=== PATIENT | female | born 1935 | race Caucasian/White ===

== ENCOUNTER 2018-08-16 17:20 | Inpatient (IN) ==
[2018-08-16] MEDS ORDERED: DILTIAZEM 50 MG/10 ML VIAL IV STA (17:56)
[2018-08-16] MEDS ORDERED: DILTIAZEM 25 MG/5 ML VIAL IV ONE (18:33)
[2018-08-16 18:54] LABS: Basophils # 0.1 10*3/uL (0.0-0.2); Basophils % 0.6 % (0.0-0.8); Eosinophils # 0.2 10*3/uL (0.0-0.87); Hematocrit 44.6 VOL% (35.7-47.0); Hemoglobin 14.2 GM/DL (12.0-16.0); Immature Granulocytes % 0.8 %; Immature Granulocytes Absolute 0.14 #; Lymphocytes # 4.2 10*3/uL (1.4-4.0); Lymphocytes % 23.7 % (21.3-54.2); Mean Corpuscular HGB Conc 31.8 GM/DL (32-36); Mean Corpuscular Hemoglobin 32 PG (27-34); Mean Platelet Volume 12.4 FL (9.6-12.0); Monocytes # 1.5 10*3/uL (0.11-0.8); Monocytes % 8.3 % (1.7-12.7); Neutrophils # 11.7 10*3/uL (1.4-7.4); Neutrophils % 65.6 % (38.7-73.9); Platelet Count 239 T/CUMM (130-400); Red Blood Count 4.46 MC/CUMM (3.8-5.5); Red Cell Distribution Width 15.8 % (9.3-17.3); White Blood Count 17.9 T/CUMM (4-12)
[2018-08-16] MEDS: dilTIAZem Drip 125 MG/125 ML PREMIX IV SCH (19:23)
[2018-08-16 19:35] LABS: Albumin 3.4 G/DL (3.4-5.0); Bilirubin,Total 0.6 MG/DL (0.2-1.0); Calcium 9.6 MG/DL (8.5-10.1); Osmolality,Calculated 299.7 MOS/KG (273-304); Potassium 5.2 MMOL/L (3.5-5.1); Total Protein 6.6 G/DL (6.4-8.3)
[2018-08-16 19:36] LABS: Troponin I < 0.015 NG/ML (0.00-0.045)
[2018-08-16] MEDS ORDERED: ONDANSETRON 4 MG/2 ML VIAL IV STA (19:36)
[2018-08-16 20:05] LABS: Lactic Acid 2.3 MMOL/L (0.4-2.0)
[2018-08-16 20:18] LABS: PT Patient Result 10.6 SECS; Partial Thromboplastin Time 32.4 SECS (0-40)
[2018-08-16] MEDS ORDERED: ONDANSETRON 4 MG/2 ML VIAL IV PRN (20:41)
[2018-08-16] MEDS ORDERED: PANTOPRAZOLE 40 MG VIAL IV ONE (20:47)
[2018-08-16] MEDS ORDERED: ALUMINUM/MAGNES/SIMETH MAX STR 30 ML UDCUP PO PRN (20:49)
[2018-08-16] MEDS ORDERED: ACETAMINOPHEN 325 MG TABLET PO PRN (20:49)
[2018-08-16] MEDS ORDERED: KETOROLAC 30 MG/1 ML VIAL IV STA (20:51)
[2018-08-16 20:52] LABS: Apearance,Urine Slightly Hazy (Clear); Bacteria,Urine Occasional /HPF (Few); Bilirubin,Urine Negative (Negative); Blood, Urine Negative (Negative); Glucose,Urine (UA) Negative (Negative); Ketones,Urine Negative (Negative); Mucus,Urine Occasional /LPF (Occasional); Nitrite,Urine Negative (Negative); Protein,Urine Negative; RBC,Urine 1 /HPF (0-4); Squamous Epithelial Cell,Urine Occasional /HPF (0-10); Urine Color Yellow (Yellow); Urine Specific Gravity 1.013 (1.001-1.035); Urine Urobilinogen < 2.0 EU/DL (0.2-1.0); WBC,Urine 37 /HPF (0-6)
[2018-08-16] MEDS ORDERED: ALBUTEROL/IPRATROPIUM 3 ML NEB RESP TX PRN (20:56)
[2018-08-16] MEDS ORDERED: DEXTROSE 50% 25 GM/50 ML VIAL IV PRN (20:57)
[2018-08-16] MEDS ORDERED: GLUCAGON 1 MG VIAL IM PRN (20:57)
[2018-08-16] MEDS ORDERED: PRAMIPEXOLE 0.25 MG TABLET PO SCH (21:00)
[2018-08-16 21:48] LABS: Hematocrit 39.7 VOL% (35.7-47.0); Hemoglobin 12.8 GM/DL (12.0-16.0)
[2018-08-16 22:12] LABS: Troponin I < 0.015 NG/ML (0.00-0.045)
[2018-08-16] MEDS: BUDESONIDE/FORMOTEROL 160-4.5 INHALER 6 GM INH SCH (23:05)
[2018-08-16] MEDS: CALCIUM (CARBONATE)/VITAMIN D 600 MG-400 UNIT TABLET PO SCH (23:07)
[2018-08-16] MEDS: BENZTROPINE 0.5 MG TABLET PO SCH (23:07)
[2018-08-16] MEDS: BACLOFEN 10 MG TABLET PO SCH (23:07)
[2018-08-16] MEDS: CARVEDILOL 12.5 MG TABLET PO SCH (23:07)
[2018-08-16] MEDS: SUCRALFATE 1 GM/10 ML UDCUP PO SCH (23:07)
[2018-08-16] MEDS: FUROSEMIDE 40 MG TABLET PO SCH (23:07)
[2018-08-16] MEDS: PREGABALIN 100 MG CAPSULE PO SCH (23:07)
[2018-08-16] MEDS: INSULIN LISPRO 100 UNIT/ML SUBCUT SCH (23:08)
[2018-08-17] MEDS ORDERED: ZIPRASIDONE 20 MG/1 ML VIAL IM ONE (01:00)
[2018-08-17 05:25] LABS: Basophils # 0.1 10*3/uL (0.0-0.2); Basophils % 0.4 % (0.0-0.8); Hematocrit 35.7 VOL% (35.7-47.0); Hemoglobin 11.5 GM/DL (12.0-16.0); Immature Granulocytes % 1.3 %; Immature Granulocytes Absolute 0.32 #; Lymphocytes % 15.8 % (21.3-54.2); Mean Corpuscular HGB Conc 32.2 GM/DL (32-36); Mean Corpuscular Hemoglobin 33 PG (27-34); Mean Corpuscular Volume 100.8 FL (87-102); Mean Platelet Volume 12.7 FL (9.6-12.0); Monocytes # 1.9 10*3/uL (0.11-0.8); Monocytes % 7.3 % (1.7-12.7); Neutrophils # 19.3 10*3/uL (1.4-7.4); Neutrophils % 75.2 % (38.7-73.9); Platelet Count 226 T/CUMM (130-400); Red Blood Count 3.54 MC/CUMM (3.8-5.5); Red Cell Distribution Width 15.6 % (9.3-17.3); White Blood Count 25.6 T/CUMM (4-12)
[2018-08-17 06:15] LABS: Anisocytosis 1+; Band Neutrophils 6 % (0-10); Lymphocytes 21 % (20-55); Macrocytosis 1+; Platelet Estimate Normal; Segmented Neutrophils 68 % (50-85); Total Cells Counted 100; Troponin I < 0.015 NG/ML (0.00-0.045)
[2018-08-17] MEDS: LEVOTHYROXINE 50 MCG TABLET PO SCH (06:20)
[2018-08-17] MEDS: dilTIAZem Drip 125 MG/125 ML PREMIX IV SCH ×2 (06:21→20:44)
[2018-08-17 07:15] LABS: Albumin 2.9 G/DL (3.4-5.0); Bilirubin,Total 0.5 MG/DL (0.2-1.0); Calcium 9.3 MG/DL (8.5-10.1); Osmolality,Calculated 309.8 MOS/KG (273-304); Potassium 5.8 MMOL/L (3.5-5.1); Risk Ratio 3.42; Total Protein 6.4 G/DL (6.4-8.3); VLDL CHOLESTEROL 30.2 MG/DL
[2018-08-17 07:18] LABS: Lactic Acid 3.2 MMOL/L (0.4-2.0)
[2018-08-17] MEDS: THEOPHYLLINE ER (24 HR) 400 MG TABLET PO SCH (09:36)
[2018-08-17] MEDS: PREGABALIN 100 MG CAPSULE PO SCH ×2 (09:36→20:46)
[2018-08-17] MEDS: SUCRALFATE 1 GM/10 ML UDCUP PO SCH ×4 (09:36→20:47)
[2018-08-17] MEDS: FUROSEMIDE 40 MG TABLET PO SCH (09:36)
[2018-08-17] MEDS: busPIRone 5 MG TABLET PO SCH (09:36)
[2018-08-17] MEDS: ALLOPURINOL 300 MG TABLET PO SCH (09:36)
[2018-08-17] MEDS: MONTELUKAST 10 MG TABLET PO SCH (09:36)
[2018-08-17] MEDS: DULoxetine 30 MG CAPSULE PO SCH (09:36)
[2018-08-17] MEDS: CARVEDILOL 12.5 MG TABLET PO SCH ×2 (09:36→16:36)
[2018-08-17] MEDS: CALCIUM (CARBONATE)/VITAMIN D 600 MG-400 UNIT TABLET PO SCH ×2 (09:37→20:47)
[2018-08-17] MEDS: DIGOXIN 0.125 MG TABLET PO SCH (09:37)
[2018-08-17] MEDS: MAGNESIUM OXIDE 400 MG TABLET PO SCH (09:38)
[2018-08-17] MEDS: POLYETHYLENE GLYCOL POWDER 17 GM PACK PO SCH (09:38)
[2018-08-17] MEDS: ARIPiprazole 2 MG TABLET PO SCH (09:39)
[2018-08-17] MEDS: INSULIN LISPRO 100 UNIT/ML SUBCUT SCH ×4 (09:39→20:47)
[2018-08-17] MEDS: BUDESONIDE/FORMOTEROL 160-4.5 INHALER 6 GM INH SCH ×2 (09:40→21:21)
[2018-08-17] MEDS: GLIMEPIRIDE 2 MG TABLET PO SCH (09:40)
[2018-08-17] MEDS: PRAMIPEXOLE 0.25 MG TABLET PO SCH ×2 (09:44→20:46)
[2018-08-17 11:01] LABS: Hematocrit 33.6 VOL% (35.7-47.0); Hemoglobin 10.9 GM/DL (12.0-16.0)
[2018-08-17 11:25] LABS: Lactic Acid 2.2 MMOL/L (0.4-2.0)
[2018-08-17] MEDS ORDERED: SODIUM POLYSTYRENE SULFATE 15 GM/60 ML BOTTLE PO STA (11:27)
[2018-08-17] MEDS: cefTRIAXone 1,000 MG in SYRINGE 1 EACH IV SCH (11:49)
[2018-08-17] MEDS: SODIUM CHLORIDE 0.9% 1,000 ML IV SCH ×2 (11:50→22:16)
[2018-08-17] MEDS: DILTIAZEM 30 MG TABLET PO SCH ×3 (12:06→20:46)
[2018-08-17] MEDS: PANTOPRAZOLE INJ 200 MG in SODIUM CHLORIDE 0.9% 250 ML IV SCH ×3 (14:57→21:21)
[2018-08-17] MEDS ORDERED: ZIPRASIDONE 20 MG/1 ML VIAL IM PRN (15:49)
[2018-08-17 15:52] LABS: Hematocrit 31.4 VOL% (35.7-47.0); Hemoglobin 10.1 GM/DL (12.0-16.0)
[2018-08-17] MEDS ORDERED: ZINC OXIDE PASTE 113 GM TUBE TOP PRN (17:24)
[2018-08-17] MEDS: BENZTROPINE 0.5 MG TABLET PO SCH (20:46)
[2018-08-17] MEDS: BACLOFEN 10 MG TABLET PO SCH (20:47)
[2018-08-17 21:42] LABS: Hematocrit 33.1 VOL% (35.7-47.0); Hemoglobin 10.2 GM/DL (12.0-16.0)
[2018-08-17] MEDS: MORPHINE 4 MG/1 ML VIAL IV PRN (22:13)
[2018-08-18 05:27] LABS: Basophils # 0.1 10*3/uL (0.0-0.2); Basophils % 0.5 % (0.0-0.8); Eosinophils # 0.7 10*3/uL (0.0-0.87); Eosinophils % 3.1 % (0.00-10.9); Hematocrit 32.2 VOL% (35.7-47.0); Hemoglobin 10.1 GM/DL (12.0-16.0); Immature Granulocytes % 0.7 %; Immature Granulocytes Absolute 0.16 #; Lymphocytes # 6.1 10*3/uL (1.4-4.0); Mean Corpuscular HGB Conc 31.4 GM/DL (32-36); Mean Corpuscular Hemoglobin 32 PG (27-34); Mean Corpuscular Volume 101.6 FL (87-102); Monocytes # 1.4 10*3/uL (0.11-0.8); Monocytes % 6.2 % (1.7-12.7); Neutrophils % 62.5 % (38.7-73.9); Platelet Count 214 T/CUMM (130-400); Red Blood Count 3.17 MC/CUMM (3.8-5.5); Red Cell Distribution Width 15.8 % (9.3-17.3); White Blood Count 22.5 T/CUMM (4-12)
[2018-08-18 06:05] LABS: Calcium 9.1 MG/DL (8.5-10.1); Osmolality,Calculated 316.1 MOS/KG (273-304); Potassium 4.2 MMOL/L (3.5-5.1)
[2018-08-18] MEDS: LEVOTHYROXINE 50 MCG TABLET PO SCH (06:07)
[2018-08-18 06:37] LABS: Hypochromasia Slight; Platelet Estimate Normal; Polychromasia Few
[2018-08-18] MEDS: CARVEDILOL 12.5 MG TABLET PO SCH ×2 (09:04→16:21)
[2018-08-18] MEDS: ARIPiprazole 2 MG TABLET PO SCH ×2 (09:04→09:09)
[2018-08-18] MEDS: INSULIN LISPRO 100 UNIT/ML SUBCUT SCH ×4 (09:04→20:44)
[2018-08-18] MEDS: GLIMEPIRIDE 2 MG TABLET PO SCH (09:04)
[2018-08-18] MEDS: MONTELUKAST 10 MG TABLET PO SCH (09:05)
[2018-08-18] MEDS: THEOPHYLLINE ER (24 HR) 400 MG TABLET PO SCH (09:05)
[2018-08-18] MEDS: CALCIUM (CARBONATE)/VITAMIN D 600 MG-400 UNIT TABLET PO SCH ×2 (09:05→20:40)
[2018-08-18] MEDS: DILTIAZEM 30 MG TABLET PO SCH ×4 (09:05→20:40)
[2018-08-18] MEDS: PRAMIPEXOLE 0.25 MG TABLET PO SCH ×2 (09:06→20:40)
[2018-08-18] MEDS: PREGABALIN 100 MG CAPSULE PO SCH ×2 (09:06→20:40)
[2018-08-18] MEDS: DIGOXIN 0.125 MG TABLET PO SCH (09:06)
[2018-08-18] MEDS: MAGNESIUM OXIDE 400 MG TABLET PO SCH (09:06)
[2018-08-18] MEDS: busPIRone 5 MG TABLET PO SCH (09:07)
[2018-08-18] MEDS: ALLOPURINOL 300 MG TABLET PO SCH (09:07)
[2018-08-18] MEDS: BUDESONIDE/FORMOTEROL 160-4.5 INHALER 6 GM INH SCH ×2 (09:07→20:44)
[2018-08-18] MEDS: POLYETHYLENE GLYCOL POWDER 17 GM PACK PO SCH (09:07)
[2018-08-18] MEDS: SODIUM CHLORIDE 0.9% 1,000 ML IV SCH (09:08)
[2018-08-18] MEDS: DULoxetine 30 MG CAPSULE PO SCH (09:08)
[2018-08-18] MEDS: SUCRALFATE 1 GM/10 ML UDCUP PO SCH ×4 (09:09→20:40)
[2018-08-18] MEDS: MORPHINE 4 MG/1 ML VIAL IV PRN (09:10)
[2018-08-18] MEDS: acetaZOLAMIDE 250 MG TABLET PO SCH (11:17)
[2018-08-18] MEDS: cefTRIAXone 1,000 MG in SYRINGE 1 EACH IV SCH (12:20)
[2018-08-18] MEDS: PANTOPRAZOLE INJ 200 MG in SODIUM CHLORIDE 0.9% 250 ML IV SCH (15:16)
[2018-08-18] MEDS: BENZTROPINE 0.5 MG TABLET PO SCH (20:40)
[2018-08-18] MEDS: BACLOFEN 10 MG TABLET PO SCH (20:40)
[2018-08-19 04:48] LABS: Basophils # 0.1 10*3/uL (0.0-0.2); Basophils % 0.5 % (0.0-0.8); Eosinophils # 0.7 10*3/uL (0.0-0.87); Eosinophils % 4.2 % (0.00-10.9); Hematocrit 26.2 VOL% (35.7-47.0); Hemoglobin 8.2 GM/DL (12.0-16.0); Immature Granulocytes % 0.6 %; Immature Granulocytes Absolute 0.09 #; Lymphocytes # 4.2 10*3/uL (1.4-4.0); Lymphocytes % 26.1 % (21.3-54.2); Mean Corpuscular HGB Conc 31.3 GM/DL (32-36); Mean Corpuscular Hemoglobin 32 PG (27-34); Mean Corpuscular Volume 103.6 FL (87-102); Mean Platelet Volume 12.2 FL (9.6-12.0); Monocytes # 1.1 10*3/uL (0.11-0.8); Monocytes % 6.7 % (1.7-12.7); NRBC # 0.03 10*3/uL; Neutrophils % 61.9 % (38.7-73.9); Platelet Count 167 T/CUMM (130-400); Red Blood Count 2.53 MC/CUMM (3.8-5.5); Red Cell Distribution Width 15.9 % (9.3-17.3); White Blood Count 16.1 T/CUMM (4-12)
[2018-08-19] MEDS: MORPHINE 4 MG/1 ML VIAL IV PRN (04:48)
[2018-08-19 05:22] LABS: Calcium 8.5 MG/DL (8.5-10.1); Osmolality,Calculated 304.3 MOS/KG (273-304); Potassium 4.1 MMOL/L (3.5-5.1)
[2018-08-19] MEDS: LEVOTHYROXINE 50 MCG TABLET PO SCH (06:23)
[2018-08-19] MEDS: SUCRALFATE 1 GM/10 ML UDCUP PO SCH ×4 (08:17→21:59)
[2018-08-19] MEDS: INSULIN LISPRO 100 UNIT/ML SUBCUT SCH ×4 (08:20→21:58)
[2018-08-19] MEDS: CARVEDILOL 12.5 MG TABLET PO SCH ×2 (08:20→17:37)
[2018-08-19] MEDS: DILTIAZEM 30 MG TABLET PO SCH ×4 (08:20→21:57)
[2018-08-19] MEDS: FUROSEMIDE 40 MG TABLET PO SCH ×2 (09:00→21:57)
[2018-08-19] MEDS: MAGNESIUM OXIDE 400 MG TABLET PO SCH (13:18)
[2018-08-19] MEDS: CALCIUM (CARBONATE)/VITAMIN D 600 MG-400 UNIT TABLET PO SCH ×2 (13:18→21:58)
[2018-08-19] MEDS: PREGABALIN 100 MG CAPSULE PO SCH ×2 (13:19→21:58)
[2018-08-19] MEDS: THEOPHYLLINE ER (24 HR) 400 MG TABLET PO SCH (13:19)
[2018-08-19] MEDS: DULoxetine 30 MG CAPSULE PO SCH (13:19)
[2018-08-19] MEDS: GLIMEPIRIDE 2 MG TABLET PO SCH (13:19)
[2018-08-19] MEDS: MONTELUKAST 10 MG TABLET PO SCH (13:19)
[2018-08-19] MEDS: POLYETHYLENE GLYCOL POWDER 17 GM PACK PO SCH (13:20)
[2018-08-19] MEDS: ALLOPURINOL 300 MG TABLET PO SCH (13:21)
[2018-08-19] MEDS: cefTRIAXone 1,000 MG in SYRINGE 1 EACH IV SCH (13:23)
[2018-08-19] MEDS: ARIPiprazole 2 MG TABLET PO SCH (13:38)
[2018-08-19] MEDS: DIGOXIN 0.125 MG TABLET PO SCH (13:39)
[2018-08-19] MEDS: SOTALOL 80 MG TABLET PO SCH ×2 (13:40→21:57)
[2018-08-19] MEDS: busPIRone 5 MG TABLET PO SCH (13:41)
[2018-08-19] MEDS: PRAMIPEXOLE 0.25 MG TABLET PO SCH ×2 (13:43→21:57)
[2018-08-19] MEDS: BUDESONIDE/FORMOTEROL 160-4.5 INHALER 6 GM INH SCH ×2 (16:14→22:04)
[2018-08-19] MEDS: BACLOFEN 10 MG TABLET PO SCH (21:58)
[2018-08-19] MEDS: BENZTROPINE 0.5 MG TABLET PO SCH (21:58)
[2018-08-19] MEDS: PANTOPRAZOLE 40 MG VIAL IV SCH (21:59)
[2018-08-20 05:55] LABS: Basophils # 0.1 10*3/uL (0.0-0.2); Basophils % 0.5 % (0.0-0.8); Eosinophils # 0.5 10*3/uL (0.0-0.87); Eosinophils % 3.7 % (0.00-10.9); Hematocrit 26.1 VOL% (35.7-47.0); Hemoglobin 8.3 GM/DL (12.0-16.0); Immature Granulocytes % 0.8 %; Lymphocytes # 3.8 10*3/uL (1.4-4.0); Lymphocytes % 31.7 % (21.3-54.2); Mean Corpuscular HGB Conc 31.8 GM/DL (32-36); Mean Corpuscular Hemoglobin 33 PG (27-34); Mean Corpuscular Volume 102.8 FL (87-102); Mean Platelet Volume 12.2 FL (9.6-12.0); Monocytes % 8.1 % (1.7-12.7); NRBC # 0.03 10*3/uL; Neutrophils # 6.7 10*3/uL (1.4-7.4); Neutrophils % 55.2 % (38.7-73.9); Platelet Count 182 T/CUMM (130-400); Red Blood Count 2.54 MC/CUMM (3.8-5.5); White Blood Count 12.1 T/CUMM (4-12)
[2018-08-20 06:20] LABS: Calcium 8.7 MG/DL (8.5-10.1); Osmolality,Calculated 295.4 MOS/KG (273-304); Potassium 3.5 MMOL/L (3.5-5.1)
[2018-08-20 06:32] LABS: Folate 22.2 NG/ML (5.4-24.0)
[2018-08-20] MEDS: LEVOTHYROXINE 50 MCG TABLET PO SCH (06:37)
[2018-08-20] MEDS: SUCRALFATE 1 GM/10 ML UDCUP PO SCH ×4 (06:37→22:04)
[2018-08-20] MEDS: INSULIN LISPRO 100 UNIT/ML SUBCUT SCH ×4 (07:28→22:04)
[2018-08-20] MEDS ORDERED: PROPOFOL 200 MG/20 ML VIAL IV ONE (09:00)
[2018-08-20] MEDS ORDERED: LIDOCAINE 100 MG/5 ML SYRINGE ONE (09:00)
[2018-08-20] MEDS ORDERED: ETOMIDATE 20 MG/10 ML VIAL IV ONE (09:00)
[2018-08-20] MEDS: BUDESONIDE/FORMOTEROL 160-4.5 INHALER 6 GM INH SCH ×2 (09:43→22:04)
[2018-08-20] MEDS: PANTOPRAZOLE 40 MG VIAL IV SCH ×2 (09:45→21:49)
[2018-08-20] MEDS: SOTALOL 80 MG TABLET PO SCH ×2 (09:48→21:49)
[2018-08-20] MEDS: DILTIAZEM 30 MG TABLET PO SCH ×4 (09:49→21:48)
[2018-08-20] MEDS: CARVEDILOL 12.5 MG TABLET PO SCH ×2 (09:49→17:58)
[2018-08-20] MEDS: cefTRIAXone 1,000 MG in SYRINGE 1 EACH IV SCH (11:01)
[2018-08-20] MEDS: MAGNESIUM OXIDE 400 MG TABLET PO SCH (13:34)
[2018-08-20] MEDS: acetaZOLAMIDE 250 MG TABLET PO SCH (13:34)
[2018-08-20] MEDS: PREGABALIN 100 MG CAPSULE PO SCH ×2 (13:35→21:48)
[2018-08-20] MEDS: DIGOXIN 0.125 MG TABLET PO SCH (13:35)
[2018-08-20] MEDS: FUROSEMIDE 40 MG TABLET PO SCH ×2 (13:36→21:48)
[2018-08-20] MEDS: MONTELUKAST 10 MG TABLET PO SCH (13:36)
[2018-08-20] MEDS: DULoxetine 30 MG CAPSULE PO SCH (13:36)
[2018-08-20] MEDS: THEOPHYLLINE ER (24 HR) 400 MG TABLET PO SCH (13:36)
[2018-08-20] MEDS: busPIRone 5 MG TABLET PO SCH (13:36)
[2018-08-20] MEDS: CALCIUM (CARBONATE)/VITAMIN D 600 MG-400 UNIT TABLET PO SCH ×2 (13:36→21:48)
[2018-08-20] MEDS: GLIMEPIRIDE 2 MG TABLET PO SCH (13:37)
[2018-08-20] MEDS: ALLOPURINOL 300 MG TABLET PO SCH (13:37)
[2018-08-20] MEDS: PRAMIPEXOLE 0.25 MG TABLET PO SCH ×2 (13:37→21:49)
[2018-08-20] MEDS: ARIPiprazole 2 MG TABLET PO SCH (13:37)
[2018-08-20] MEDS: POLYETHYLENE GLYCOL POWDER 17 GM PACK PO SCH (13:38)
[2018-08-20] MEDS: BENZTROPINE 0.5 MG TABLET PO SCH (21:48)
[2018-08-20] MEDS: BACLOFEN 10 MG TABLET PO SCH (21:48)
[2018-08-21 05:48] LABS: Basophils # 0.1 10*3/uL (0.0-0.2); Basophils % 0.5 % (0.0-0.8); Eosinophils # 0.3 10*3/uL (0.0-0.87); Eosinophils % 1.9 % (0.00-10.9); Hematocrit 26.1 VOL% (35.7-47.0); Hemoglobin 8.3 GM/DL (12.0-16.0); Immature Granulocytes % 1.3 %; Lymphocytes # 4.2 10*3/uL (1.4-4.0); Lymphocytes % 27.4 % (21.3-54.2); Mean Corpuscular HGB Conc 31.8 GM/DL (32-36); Mean Corpuscular Hemoglobin 33 PG (27-34); Mean Corpuscular Volume 102.8 FL (87-102); Mean Platelet Volume 12.6 FL (9.6-12.0); Monocytes # 1.2 10*3/uL (0.11-0.8); Monocytes % 7.8 % (1.7-12.7); NRBC # 0.05 10*3/uL; Neutrophils # 9.3 10*3/uL (1.4-7.4); Neutrophils % 61.1 % (38.7-73.9); Platelet Count 205 T/CUMM (130-400); Red Blood Count 2.54 MC/CUMM (3.8-5.5); Red Cell Distribution Width 16.3 % (9.3-17.3); White Blood Count 15.3 T/CUMM (4-12)
[2018-08-21 06:05] LABS: Calcium 8.9 MG/DL (8.5-10.1); Osmolality,Calculated 294.4 MOS/KG (273-304); Potassium 3.5 MMOL/L (3.5-5.1)
[2018-08-21] MEDS: LEVOTHYROXINE 50 MCG TABLET PO SCH (07:05)
[2018-08-21] MEDS: PANTOPRAZOLE 40 MG VIAL IV SCH ×2 (09:31→21:02)
[2018-08-21] MEDS: SUCRALFATE 1 GM/10 ML UDCUP PO SCH ×4 (09:36→21:01)
[2018-08-21] MEDS: CARVEDILOL 12.5 MG TABLET PO SCH (09:36)
[2018-08-21] MEDS: INSULIN LISPRO 100 UNIT/ML SUBCUT SCH ×4 (09:36→21:01)
[2018-08-21] MEDS: DILTIAZEM 30 MG TABLET PO SCH (09:37)
[2018-08-21] MEDS: CALCIUM (CARBONATE)/VITAMIN D 600 MG-400 UNIT TABLET PO SCH ×3 (09:37→20:58)
[2018-08-21] MEDS: SOTALOL 80 MG TABLET PO SCH ×3 (09:37→20:58)
[2018-08-21] MEDS: PREGABALIN 100 MG CAPSULE PO SCH ×3 (09:38→20:58)
[2018-08-21] MEDS: FUROSEMIDE 40 MG TABLET PO SCH ×3 (09:38→20:58)
[2018-08-21] MEDS: PRAMIPEXOLE 0.25 MG TABLET PO SCH ×3 (09:38→20:58)
[2018-08-21] MEDS: ARIPiprazole 2 MG TABLET PO SCH ×2 (10:58→12:21)
[2018-08-21] MEDS: GLIMEPIRIDE 2 MG TABLET PO SCH ×2 (10:58→12:18)
[2018-08-21] MEDS: busPIRone 5 MG TABLET PO SCH ×2 (10:59→12:17)
[2018-08-21] MEDS: DIGOXIN 0.125 MG TABLET PO SCH (10:59)
[2018-08-21] MEDS: DULoxetine 30 MG CAPSULE PO SCH ×2 (11:00→12:18)
[2018-08-21] MEDS: MAGNESIUM OXIDE 400 MG TABLET PO SCH ×2 (11:01→12:17)
[2018-08-21] MEDS: MONTELUKAST 10 MG TABLET PO SCH ×2 (11:03→12:19)
[2018-08-21] MEDS: POLYETHYLENE GLYCOL POWDER 17 GM PACK PO SCH (11:03)
[2018-08-21] MEDS: THEOPHYLLINE ER (24 HR) 400 MG TABLET PO SCH ×2 (11:04→12:22)
[2018-08-21] MEDS: ALLOPURINOL 300 MG TABLET PO SCH ×2 (11:04→12:19)
[2018-08-21] MEDS: BUDESONIDE/FORMOTEROL 160-4.5 INHALER 6 GM INH SCH ×2 (11:52→21:06)
[2018-08-21] MEDS: cefTRIAXone 1,000 MG in SYRINGE 1 EACH IV SCH (12:15)
[2018-08-21] MEDS: ASPIRIN EC 81 MG TABLET PO SCH (12:20)
[2018-08-21] MEDS: DILTIAZEM 60 MG TABLET PO SCH ×2 (15:41→20:58)
[2018-08-21] MEDS: BACLOFEN 10 MG TABLET PO SCH (20:58)
[2018-08-21] MEDS: BENZTROPINE 0.5 MG TABLET PO SCH (20:58)
[2018-08-21] MEDS: BENZONATATE 100 MG CAPSULE PO PRN (20:58)
[2018-08-22 04:44] LABS: Basophils # 0.1 10*3/uL (0.0-0.2); Basophils % 0.6 % (0.0-0.8); Eosinophils # 0.3 10*3/uL (0.0-0.87); Eosinophils % 1.9 % (0.00-10.9); Hematocrit 28.5 VOL% (35.7-47.0); Immature Granulocytes % 2.9 %; Immature Granulocytes Absolute 0.51 #; Lymphocytes # 5.7 10*3/uL (1.4-4.0); Lymphocytes % 32.2 % (21.3-54.2); Mean Corpuscular HGB Conc 31.6 GM/DL (32-36); Mean Corpuscular Hemoglobin 33 PG (27-34); Mean Corpuscular Volume 102.9 FL (87-102); Mean Platelet Volume 12.3 FL (9.6-12.0); Monocytes # 1.4 10*3/uL (0.11-0.8); Monocytes % 8.1 % (1.7-12.7); NRBC # 0.17 10*3/uL; Neutrophils # 9.7 10*3/uL (1.4-7.4); Neutrophils % 54.3 % (38.7-73.9); Platelet Count 251 T/CUMM (130-400); Red Blood Count 2.77 MC/CUMM (3.8-5.5); Red Cell Distribution Width 16.8 % (9.3-17.3); White Blood Count 17.8 T/CUMM (4-12)
[2018-08-22 05:06] LABS: Calcium 9.2 MG/DL (8.5-10.1); Osmolality,Calculated 292.3 MOS/KG (273-304); Potassium 3.3 MMOL/L (3.5-5.1)
[2018-08-22 05:20] LABS: Band Neutrophils 3 % (0-10); Eosinophils 1 % (0-10); Hypochromasia 1+; Lymphocytes 38 % (20-55); Ovalocytes Slight; Platelet Estimate Adequate; Segmented Neutrophils 52 % (50-85); Total Cells Counted 100
[2018-08-22] MEDS: LEVOTHYROXINE 50 MCG TABLET PO SCH (06:15)
[2018-08-22] MEDS: POTASSIUM CHLORIDE 20 MEQ TABLET PO PRN ×4 (06:15→16:57)
[2018-08-22] MEDS: INSULIN LISPRO 100 UNIT/ML SUBCUT SCH ×4 (09:18→21:20)
[2018-08-22] MEDS: SUCRALFATE 1 GM/10 ML UDCUP PO SCH ×4 (09:18→21:20)
[2018-08-22] MEDS: POLYETHYLENE GLYCOL POWDER 17 GM PACK PO SCH (09:19)
[2018-08-22] MEDS: PANTOPRAZOLE 40 MG VIAL IV SCH ×2 (09:19→21:20)
[2018-08-22] MEDS: DIGOXIN 0.125 MG TABLET PO SCH (09:20)
[2018-08-22] MEDS: MAGNESIUM OXIDE 400 MG TABLET PO SCH (09:21)
[2018-08-22] MEDS: MONTELUKAST 10 MG TABLET PO SCH (09:21)
[2018-08-22] MEDS: CALCIUM (CARBONATE)/VITAMIN D 600 MG-400 UNIT TABLET PO SCH ×2 (09:21→21:19)
[2018-08-22] MEDS: ARIPiprazole 2 MG TABLET PO SCH (09:21)
[2018-08-22] MEDS: FUROSEMIDE 40 MG TABLET PO SCH ×2 (09:21→21:19)
[2018-08-22] MEDS: DILTIAZEM 60 MG TABLET PO SCH (09:22)
[2018-08-22] MEDS: SOTALOL 80 MG TABLET PO SCH ×2 (09:22→21:19)
[2018-08-22] MEDS: THEOPHYLLINE ER (24 HR) 400 MG TABLET PO SCH (09:22)
[2018-08-22] MEDS: GLIMEPIRIDE 2 MG TABLET PO SCH (09:22)
[2018-08-22] MEDS: ALLOPURINOL 300 MG TABLET PO SCH (09:23)
[2018-08-22] MEDS: ASPIRIN EC 81 MG TABLET PO SCH (09:23)
[2018-08-22] MEDS: busPIRone 5 MG TABLET PO SCH (09:23)
[2018-08-22] MEDS: acetaZOLAMIDE 250 MG TABLET PO SCH (09:23)
[2018-08-22] MEDS: DULoxetine 30 MG CAPSULE PO SCH (09:23)
[2018-08-22] MEDS: PREGABALIN 100 MG CAPSULE PO SCH ×2 (09:23→21:19)
[2018-08-22] MEDS: PRAMIPEXOLE 0.25 MG TABLET PO SCH ×2 (09:24→21:18)
[2018-08-22] MEDS: BUDESONIDE/FORMOTEROL 160-4.5 INHALER 6 GM INH SCH ×2 (09:26→21:20)
[2018-08-22] MEDS ORDERED: DILTIAZEM CD 120 MG CAPSULE PO SCH (10:00)
[2018-08-22] MEDS: cefTAZidime 1,000 MG in SYRINGE 1 EACH IV SCH ×2 (11:49→23:00)
[2018-08-22 12:25] LABS: Apearance,Urine CLEAR (Clear); Bilirubin,Urine Negative (Negative); Blood, Urine Negative (Negative); Glucose,Urine (UA) Negative (Negative); Ketones,Urine Negative (Negative); Nitrite,Urine Negative (Negative); Protein,Urine Negative; Urine Color Yellow (Yellow); Urine Specific Gravity 1.009 (1.001-1.035); Urine Urobilinogen < 2.0 EU/DL (0.2-1.0); WBC,Urine <1 /HPF (0-6)
[2018-08-22] MEDS: DILTIAZEM CD 120 MG CAPSULE PO SCH ×2 (12:48→21:19)
[2018-08-22] MEDS: BENZONATATE 100 MG CAPSULE PO PRN (21:18)
[2018-08-22] MEDS: BACLOFEN 10 MG TABLET PO SCH (21:19)
[2018-08-22] MEDS: BENZTROPINE 0.5 MG TABLET PO SCH (21:19)
[2018-08-23 05:01] LABS: Basophils # 0.1 10*3/uL (0.0-0.2); Basophils % 0.6 % (0.0-0.8); Eosinophils # 0.4 10*3/uL (0.0-0.87); Eosinophils % 2.2 % (0.00-10.9); Immature Granulocytes % 4.1 %; Immature Granulocytes Absolute 0.73 #; Lymphocytes # 5.5 10*3/uL (1.4-4.0); Lymphocytes % 31.3 % (21.3-54.2); Mean Corpuscular Hemoglobin 32 PG (27-34); Mean Corpuscular Volume 103.6 FL (87-102); Monocytes # 1.5 10*3/uL (0.11-0.8); Monocytes % 8.7 % (1.7-12.7); NRBC # 0.28 10*3/uL; Neutrophils # 9.4 10*3/uL (1.4-7.4); Neutrophils % 53.1 % (38.7-73.9); Platelet Count 271 T/CUMM (130-400); Red Cell Distribution Width 16.9 % (9.3-17.3); White Blood Count 17.7 T/CUMM (4-12)
[2018-08-23 05:16] LABS: Calcium 9.2 MG/DL (8.5-10.1); Osmolality,Calculated 292.4 MOS/KG (273-304); Potassium 3.9 MMOL/L (3.5-5.1)
[2018-08-23 05:18] LABS: Calcium 9.1 MG/DL (8.5-10.1); Osmolality,Calculated 290.4 MOS/KG (273-304); Potassium 3.9 MMOL/L (3.5-5.1)
[2018-08-23 06:05] LABS: Acanthocytes 1+; Anisocytosis 3+; Band Neutrophils 2 % (0-10); Eosinophils 3 % (0-10); Hypochromasia 2+; Lymphocytes 26 % (20-55); Macrocytosis 2+; Microcytosis 1+; Ovalocytes 1+; Platelet Estimate Normal; Segmented Neutrophils 61 % (50-85); Target Cells 2+; Total Cells Counted 100
[2018-08-23] MEDS: SUCRALFATE 1 GM/10 ML UDCUP PO SCH ×2 (06:10→12:52)
[2018-08-23] MEDS: LEVOTHYROXINE 50 MCG TABLET PO SCH (06:10)
[2018-08-23] MEDS: INSULIN LISPRO 100 UNIT/ML SUBCUT SCH ×2 (09:05→12:52)
[2018-08-23] MEDS: ARIPiprazole 2 MG TABLET PO SCH (09:07)
[2018-08-23] MEDS: ASPIRIN EC 81 MG TABLET PO SCH (09:10)
[2018-08-23] MEDS: GLIMEPIRIDE 2 MG TABLET PO SCH (09:10)
[2018-08-23] MEDS: CALCIUM (CARBONATE)/VITAMIN D 600 MG-400 UNIT TABLET PO SCH (09:11)
[2018-08-23] MEDS: busPIRone 5 MG TABLET PO SCH (09:11)
[2018-08-23] MEDS: SOTALOL 80 MG TABLET PO SCH (09:11)
[2018-08-23] MEDS: DILTIAZEM CD 120 MG CAPSULE PO SCH (09:12)
[2018-08-23] MEDS: DIGOXIN 0.125 MG TABLET PO SCH (09:12)
[2018-08-23] MEDS: FUROSEMIDE 40 MG TABLET PO SCH (09:12)
[2018-08-23] MEDS: DULoxetine 30 MG CAPSULE PO SCH (09:12)
[2018-08-23] MEDS: PREGABALIN 100 MG CAPSULE PO SCH (09:13)
[2018-08-23] MEDS: MAGNESIUM OXIDE 400 MG TABLET PO SCH (09:13)
[2018-08-23] MEDS: PRAMIPEXOLE 0.25 MG TABLET PO SCH (09:13)
[2018-08-23] MEDS: POLYETHYLENE GLYCOL POWDER 17 GM PACK PO SCH (09:13)
[2018-08-23] MEDS: ALLOPURINOL 300 MG TABLET PO SCH (09:14)
[2018-08-23] MEDS: THEOPHYLLINE ER (24 HR) 400 MG TABLET PO SCH (09:14)
[2018-08-23] MEDS: BUDESONIDE/FORMOTEROL 160-4.5 INHALER 6 GM INH SCH (09:14)
[2018-08-23] MEDS: PANTOPRAZOLE 40 MG VIAL IV SCH (09:15)
[2018-08-23] MEDS: cefTAZidime 1,000 MG in SYRINGE 1 EACH IV SCH (09:19)
[2018-08-23] MEDS: MONTELUKAST 10 MG TABLET PO SCH (09:26)
[2018-08-23 12:37] VITALS: BP 108/68
== END 2018-08-23 14:21 | DRG 378 ==
LOC: EDBD → EDUNIT# → N.ED 17:20 → SUATTDRO 19:54 → N.EDINP 19:54 → N.TELEN 20:39
PROVIDERS: ADMIT Internal Medicine; ATTEND Internal Medicine

== ENCOUNTER 2019-02-13 13:02 | Inpatient (IN) ==
[2019-02-13] MEDS ORDERED: AZITHROMYCIN INJ 500 MG in SODIUM CHLORIDE 0.9% 250 ML IV STA (13:26)
[2019-02-13] MEDS ORDERED: cefTRIAXone 1,000 MG in SODIUM CHLORIDE 0.9% 100 ML IV STA (13:26)
[2019-02-13] MEDS ORDERED: ALBUTEROL NEB SOLN 5 MG/ML 20 ML/BOTTLE RESP TX SCH (13:30)
[2019-02-13 14:55] LABS: Basophils # 0.1 10*3/uL (0.0-0.2); Basophils % 0.4 % (0.0-0.8); Hematocrit 52.6 VOL% (35.7-47.0); Hemoglobin 14.3 GM/DL (12.0-16.0); Immature Granulocytes % 1.2 %; Immature Granulocytes Absolute 0.36 #; Lymphocytes % 3.4 % (21.3-54.2); Mean Corpuscular HGB Conc 27.2 GM/DL (32-36); Mean Corpuscular Volume 84.7 FL (87-102); Mean Platelet Volume 11.2 FL (9.6-12.0); NRBC # 0.04 10*3/uL; Platelet Count 380 T/CUMM (130-400); Red Blood Count 6.21 MC/CUMM (3.8-5.5); Red Cell Distribution Width 22.2 % (9.3-17.3); White Blood Count 30.7 T/CUMM (4-12)
[2019-02-13 15:14] LABS: Band Neutrophils 3 % (0-10); Lymphocytes 7 % (20-55); Nucleated Red Blood Cells 2 (0-5); Polychromasia 1+; Segmented Neutrophils 84 % (50-85); Total Cells Counted 100
[2019-02-13 15:15] LABS: Platelet Estimate Normal
[2019-02-13 15:20] LABS: Alanine Aminotransferase 18 U/L (13-56); Albumin 2.3 G/DL (3.4-5.0); Alkaline Phosphatase 220 U/L (45-117); Aspartate Amino Transferase 19 U/L (0-37); Blood Urea Nitrogen 69 MG/DL (7-18); Calcium 10.4 MG/DL (8.5-10.1); Glucose 107 MG/DL (74-106); Osmolality,Calculated 289.1 MOS/KG (273-304); Total Protein 7.9 G/DL (6.4-8.3); Troponin I < 0.015 NG/ML (0.00-0.045)
[2019-02-13 15:47] LABS: PT Patient Result 10.6 SECS
[2019-02-13] MEDS ORDERED: MORPHINE 4 MG/1 ML VIAL IV PRN (16:09)
[2019-02-13] MEDS ORDERED: ALBUTEROL 2.5 MG/3 ML NEB RESP TX PRN (16:09)
[2019-02-13] MEDS ORDERED: ONDANSETRON 4 MG/2 ML VIAL IV PRN (16:09)
[2019-02-13] MEDS ORDERED: PANTOPRAZOLE 40 MG VIAL IV SCH (16:30)
[2019-02-13 17:18] LABS: ABG Base Excess -1.1 MMOL/L (-2.5-2.5); ABG HCO3 23.2 MMOL/L (20-26); ABG Oxygen Saturation 85.1 % (95-100); ABG PO2 60.2 MM HG (80-95); ABG TCO2 27.3 MMOL/L (23-27)
[2019-02-13 17:21] LABS: ABG PH 7.192 (7.35-7.45)
[2019-02-13 17:22] LABS: ABG PCO2 79.8 MM HG (35-48)
[2019-02-13] MEDS ORDERED: ACETAMINOPHEN 325 MG TABLET PO PRN (19:51)
[2019-02-13] MEDS ORDERED: FUROSEMIDE 40 MG/4 ML VIAL IV SCH (19:51)
[2019-02-13] MEDS ORDERED: MAGNESIUM HYDROXIDE SUSP 30 ML UDCUP PO PRN (19:51)
[2019-02-13] MEDS ORDERED: LOPERAMIDE 2 MG CAPSULE PO PRN (19:51)
[2019-02-13] MEDS ORDERED: POLYETHYLENE GLYCOL POWDER 17 GM PACK PO PRN (19:51)
[2019-02-13] MEDS ORDERED: acetaZOLAMIDE 250 MG TABLET PO SCH (19:51)
[2019-02-13] MEDS ORDERED: BENZONATATE 100 MG CAPSULE PO PRN (19:51)
[2019-02-13] MEDS ORDERED: CARBOXYMETHYLCELLULOSE 1% OPH SOLN LEFT EYE PRN (19:51)
[2019-02-13] MEDS: GLIMEPIRIDE 2 MG TABLET PO SCH (21:38)
[2019-02-13] MEDS: DIGOXIN 0.125 MG TABLET PO SCH (21:39)
[2019-02-13] MEDS: ASPIRIN EC 81 MG TABLET PO SCH (21:39)
[2019-02-13 21:40] LABS: ABG Base Excess -1.1 MMOL/L (-2.5-2.5); ABG HCO3 23.5 MMOL/L (20-26); ABG Oxygen Saturation 97.6 % (95-100); Allen Test Positive; Pt O2 Delivery Device BIPAP
[2019-02-13] MEDS: CETIRIZINE 10 MG TABLET PO SCH (21:40)
[2019-02-13] MEDS: ALLOPURINOL 300 MG TABLET PO SCH (21:40)
[2019-02-13] MEDS: FAMOTIDINE 20 MG TABLET PO SCH (21:40)
[2019-02-13] MEDS: MAGNESIUM OXIDE 400 MG TABLET PO SCH (21:40)
[2019-02-13] MEDS: MONTELUKAST 10 MG TABLET PO SCH (21:40)
[2019-02-13] MEDS: SUCRALFATE 1 GM TABLET PO SCH (21:41)
[2019-02-13] MEDS: DILTIAZEM CD 120 MG CAPSULE PO SCH (21:41)
[2019-02-13] MEDS: SOTALOL 80 MG TABLET PO SCH (21:41)
[2019-02-13] MEDS: DOCUSATE SODIUM 100 MG CAPSULE PO SCH (21:41)
[2019-02-13] MEDS: busPIRone 10 MG TABLET PO SCH (21:41)
[2019-02-13] MEDS: ENOXAPARIN 30 MG/0.3 ML SYRINGE SUBCUT SCH (21:41)
[2019-02-13] MEDS: PRAMIPEXOLE 0.25 MG TABLET PO SCH (21:42)
[2019-02-13] MEDS: PIPERACILLIN/TAZOBACTAM 2,250 MG in SODIUM CHLORIDE 0.9% 100 ML IV SCH (21:43)
[2019-02-13] MEDS: BUDESONIDE/FORMOTEROL 160-4.5 INHALER 6 GM INH SCH (21:43)
[2019-02-13 21:44] LABS: ABG PH 7.197 (7.35-7.45)
[2019-02-13 21:46] LABS: ABG PCO2 77.8 MM HG (35-48)
[2019-02-14 03:19] LABS: ABG Base Excess -1.4 MMOL/L (-2.5-2.5); ABG HCO3 23.1 MMOL/L (20-26); ABG Oxygen Saturation 93.4 % (95-100); ABG PH 7.223 (7.35-7.45); ABG PO2 77.3 MM HG (80-95); ABG TCO2 25.6 MMOL/L (23-27)
[2019-02-14 03:21] LABS: ABG PCO2 69.9 MM HG (35-48)
[2019-02-14] MEDS: NOREPINEPHRINE 8 MG in SODIUM CHLORIDE 0.9% 242 ML IV PRN ×5 (03:55→18:01)
[2019-02-14] MEDS: PIPERACILLIN/TAZOBACTAM 2,250 MG in SODIUM CHLORIDE 0.9% 100 ML IV SCH ×3 (05:16→21:00)
[2019-02-14 06:16] LABS: Basophils % 0.1 % (0.0-0.8); Immature Granulocytes % 3.3 %; Immature Granulocytes Absolute 1.71 #; Lymphocytes # 3.3 10*3/uL (1.4-4.0); Lymphocytes % 6.4 % (21.3-54.2); Mean Corpuscular HGB Conc 26.6 GM/DL (32-36); Mean Corpuscular Volume 86.8 FL (87-102); Mean Platelet Volume 12.1 FL (9.6-12.0); Monocytes % 5.9 % (1.7-12.7); NRBC # 0.21 10*3/uL; Neutrophils % 84.3 % (38.7-73.9); Platelet Count 457 T/CUMM (130-400); Red Blood Count 6.12 MC/CUMM (3.8-5.5); Red Cell Distribution Width 22.7 % (9.3-17.3)
[2019-02-14 06:35] LABS: Hematocrit 52.9 VOL% (35.7-47.0)
[2019-02-14 06:36] LABS: White Blood Count 51.7 T/CUMM (4-12)
[2019-02-14 06:37] LABS: Hemoglobin 14.2 GM/DL (12.0-16.0)
[2019-02-14 06:40] LABS: Band Neutrophils 50 % (0-10); Giant Platelets Few; Lymphocytes 6 % (20-55); Metamyelocytes 1 %; Platelet Estimate Normal; Segmented Neutrophils 40 % (50-85); Total Cells Counted 100
[2019-02-14 06:41] LABS: Anisocytosis 1+; Macrocytosis Slight
[2019-02-14] MEDS ORDERED: LEVOTHYROXINE 75 MCG TABLET PO SCH (07:00)
[2019-02-14] MEDS: SUCRALFATE 1 GM TABLET PO SCH ×4 (07:30→20:24)
[2019-02-14 08:02] LABS: Albumin 1.6 G/DL (3.4-5.0); Bilirubin,Total 0.7 MG/DL (0.2-1.0); Calcium 11.4 MG/DL (8.5-10.1); Thyroid Stimulating Hormone 1.75 uIU/ml (0.358-3.74); Total Protein 7.2 G/DL (6.4-8.3)
[2019-02-14] MEDS ORDERED: DEXTROSE 50% 25 GM/50 ML SYRINGE IV ONE ×2 (08:13→08:42)
[2019-02-14] MEDS ORDERED: DEXTROSE 50% 25 GM/50 ML SYRINGE IV PRN (08:15)
[2019-02-14] MEDS ORDERED: DULoxetine 30 MG CAPSULE PO SCH (09:00)
[2019-02-14] MEDS ORDERED: THEOPHYLLINE ER (24 HR) 400 MG TABLET PO SCH (09:00)
[2019-02-14] MEDS ORDERED: INSULIN GLARGINE 100 UNIT/ML SUBCUT SCH ×2 (09:00→21:00)
[2019-02-14] MEDS ORDERED: PANTOPRAZOLE 40 MG TABLET PO SCH (09:00)
[2019-02-14] MEDS ORDERED: ARIPiprazole 5 MG TABLET PO SCH (09:00)
[2019-02-14] MEDS ORDERED: EPLERENONE 50 MG TABLET PO SCH (09:00)
[2019-02-14] MEDS: DEXTROSE 10% 1,000 ML IV SCH ×2 (09:30→19:32)
[2019-02-14] MEDS: BUDESONIDE/FORMOTEROL 160-4.5 INHALER 6 GM INH SCH ×2 (10:00→20:25)
[2019-02-14] MEDS: ALLOPURINOL 300 MG TABLET PO SCH (10:00)
[2019-02-14] MEDS: FAMOTIDINE 20 MG TABLET PO SCH (10:00)
[2019-02-14] MEDS: MONTELUKAST 10 MG TABLET PO SCH (10:00)
[2019-02-14] MEDS: busPIRone 10 MG TABLET PO SCH ×2 (10:00→20:24)
[2019-02-14] MEDS: MAGNESIUM OXIDE 400 MG TABLET PO SCH (10:00)
[2019-02-14] MEDS: GLIMEPIRIDE 2 MG TABLET PO SCH (10:00)
[2019-02-14] MEDS: SOTALOL 80 MG TABLET PO SCH ×2 (10:00→20:24)
[2019-02-14] MEDS: ASPIRIN EC 81 MG TABLET PO SCH (10:00)
[2019-02-14] MEDS: PRAMIPEXOLE 0.25 MG TABLET PO SCH ×2 (10:00→20:25)
[2019-02-14] MEDS: CETIRIZINE 10 MG TABLET PO SCH (10:00)
[2019-02-14] MEDS: DIGOXIN 0.125 MG TABLET PO SCH (10:00)
[2019-02-14] MEDS: DILTIAZEM CD 120 MG CAPSULE PO SCH ×2 (10:00→20:24)
[2019-02-14] MEDS: DOCUSATE SODIUM 100 MG CAPSULE PO SCH (20:24)
[2019-02-14 20:50] VITALS: BP 74/35
[2019-02-14] MEDS ORDERED: BENZTROPINE 0.5 MG TABLET PO SCH (21:00)
[2019-02-14] MEDS: ENOXAPARIN 30 MG/0.3 ML SYRINGE SUBCUT SCH (21:00)
[2019-02-14] MEDS ORDERED: BACLOFEN 10 MG TABLET PO SCH (21:00)
== END 2019-02-14 21:58 | disposition expired | DRG 871 ==
LOC: EDUNIT# → EDBD → N.ED 13:02 → N.EDINP 16:09 → SUATTDRO 16:09 → N.CC 17:44
PROVIDERS: ADMIT Internal Medicine; ATTEND Internal Medicine Geriatric Medicine